=== PATIENT | female | born 1970 | race Caucasian/White ===

== ENCOUNTER 2017-07-11 13:40 | Inpatient (IN) | payer OTHER ==
[~2017-07-11] VITALS: Ht 167.6 cm; Wt 115.8 kg
--- NOTE | 2017-07-11 14:20 | ED GI/GU/ABDOMINAL COMPLAINT ---
History of Present Illness General Chief Complaint: Abdominal Pain/Flank Pain Stated Complaint: SENT BY URGENT CARE FOR ABD CT SCAN Source: patient, family Exam Limitations: no limitations Vital Signs & Intake/Output Vital Signs & Intake/Output Vital Signs Date Time Temp Pulse Resp B/P B/P Pulse O2 O2 Flow FiO2 Mean Ox Delivery Rate 07/11 1914 97.8 82 16 136/74 98 Room Air 07/11 1627 99.4 84 16 128/63 97 Room Air 07/11 1346 100.2 111 20 134/82 98 Room Air Allergies Coded Allergies: NO KNOWN ALLERGIES (10/30/12) Reconcile Medications No Known Home Medications Triage Note: SENT BY [facility]. C/O L SIDED ABDOMINAL PAIN X 2 DAYS, WITH DIARRHEA, DENIES NAUSEA OR VOMITING. Triage Nurses Notes Reviewed? yes ? Y Is pt currently ? No HPI: 46 yo previously healthy F presenting with abdominal pain. Intermittent abdominal pain for the last 3-4 days, sharp quality, left upper abdomen, waxing and waning severity, severe intensity, worse after eating, much worse since eating breakfast. Associated nausea without emesis, intermittent nonbloody loose bowel movements. Denies associated fevers, chills, chest pain, shortness of breath, palpitations, urinary symptoms, headache, neck pain, or focal neurologic symptoms. Patient never had some pain in the past. Patient has intermittent alcohol use, drinking heavily for 1 week while on vacation in [place], returned early last week, Friday had several mixed whiskey drinks, Friday drank heavily for [place] [place] Day throughout the day (multiple shots, wiskey/cokes, zeenat car bombs). (Babatunde STEVENSON,Greg) Past History Travel History Traveled to [facility] past 21 day No Medical History Any Pertinent Medical History? see below for history Neurological: NONE Cardiovascular: NONE Respiratory: NONE Gastrointestinal: NONE Hepatic: NONE Renal: NONE Musculoskeletal: NONE Psychiatric: NONE Endocrine: NONE Surgical History Surgical History: none Psychosocial History What is your primary language Thai Tobacco Use: Current Daily Use Daily Tobacco Use Amount/Type: => 5 Cigarettes daily ETOH Use: occasional use Family History Hx Contributory? No (Greg Fine MD) Review of Systems Review of Systems Constitutional: Reports: no symptoms. EENTM: Reports: no symptoms. Respiratory: Reports: no symptoms. Cardiovascular: Reports: no symptoms. GI: Reports: see HPI. Genitourinary: Reports: no symptoms. Musculoskeletal: Reports: no symptoms. Skin: Reports: no symptoms. Neurological/Psychological: Reports: no symptoms. Hematologic/Endocrine: Reports: no symptoms. Immunologic/Allergic: Reports: no symptoms. All Other Systems: Reviewed and Negative (Babatunde STEVENSON,Greg) Physical Exam Physical Exam General Appearance: well developed/nourished, no apparent distress, alert, awake Head: atraumatic, normal appearance Eyes: Bilateral: PERRL, EOMI. Ears, Nose, Throat, Mouth: hearing grossly normal, moist mucous membrane Neck: normal inspection, full range of motion Respiratory: normal breath sounds, no respiratory distress, lungs clear Cardiovascular: regular rate/rhythm, normal peripheral pulses Gastrointestinal: normal bowel sounds, non-tender, tenderness Comments: Abdomen: Moderate epigastric/left upper quadrant/left flank tenderness without rebound or guarding Core Measures ACS in differential dx? No Sepsis Present: No Sepsis Focused Exam Completed? No (Babatunde STEVENSON,Greg) Progress Differential Diagnosis: AAA, AMI, appendicitis, biliary colic, bowel obstruction , colon cancer, cholecystitis, diverticulitis, ectopic , endometritis, esophageal varices, gastritis, hepatitis, hernia, hemorrhoids, ischemic bowel, inflamm bowel dis, intrauterine , kidney stone, Veronica-Juanita tear, ovarian cyst, ovarian torsion, pancreatitis, PID/cervicitis, peptic ulcer, PUD/ GERD, perforated viscous, SBO, threatened AB, UTI/pyelo Plan of Care: Orders Procedure Date/time Status Nothing by Mouth 07/12 B Active Misc Message 07/11 1905 Active ED Holding Orders 07/11 1905 Active Code Status 07/11 1905 Active Admit to inpatient 07/12 1903 Active URINALYSIS 07/11 141 Complete LIPASE 07/11 1417 Complete LACTIC ACID 07/11 141 Complete COMPREHENSIVE METABOLIC PANEL 07/11 141 Complete CBC WITHOUT DIFFERENTIAL 07/11 141 Complete Current Medications Sig/Melissa Start time Last Medication Dose Stop Time Status Admin Sodium Chloride 1,000 ML BOLUS ONE 07/11 1914 AC 07/11 (Normal Saline 0.9%) 07/11 Laboratory Tests 07/11/17 1600: Urine Color YEL, Urine Clarity CLEAR, Urine pH 6.0, Ur Specific Galax 1.010, Urine Protein NEG, Urine Ketones NEG, Urine Nitrite NEG, Urine Bilirubin NEG, Urine Urobilinogen 0.2, Ur Leukocyte Esterase NEG, Ur Microscopic SEDIMENT EXAMINED, Urine RBC RARE, Urine WBC RARE, Ur Epithelial Cells FEW, Urine Bacteria FEW H, Urine Mucus RARE, Urine Hemoglobin TRACE-INTACT, Urine Glucose NEG 07/11/17 1438: Anion Gap 13, Estimated GFR > 60, BUN/Creatinine Ratio 16.7, Glucose 82, Lactic Acid 0.9, Calcium 9.6, Total Bilirubin 1.1, AST 13 L, ALT 26, Alkaline Phosphatase 69, Total Protein 6.7, Albumin 3.8, Globulin 2.9, Albumin/Globulin Ratio 1.3, Lipase 455 H, CBC w Diff NO MAN DIFF REQ, RBC 4.91, MCV 90.4, MCH 31.1 H, MCHC 34.4, RDW 12.9, MPV 7.2 L, Gran % 80.2 H, Lymphocytes % 12.2 L, Monocytes % 6.4, Eosinophils % 0.7, Basophils % 0.5, Absolute Granulocytes 10.0 H, Absolute Lymphocytes 1.5, Absolute Monocytes 0.8 H, Absolute Eosinophils 0.1 , Absolute Basophils 0.1 Physician MDM: 46 yo previously healthy F presenting with abdominal pain. Tachycardic in the 110s, otherwise vital signs stable, abdominal exam as above. DDx: Pancreatitis, colitis, biliary pathology, early appendicitis, diverticulitis, low concern for ACS. CBC with mild leukocytosis of 12.5. CMP unremarkable. Lipase 455. Morphine given 2 with resolution of abdominal pain. CT A/P with "Acute pancreatitis. Currently no complications." Plan to keep patient NPO, second liter normal saline ordered. Right upper quadrant ultrasound ordered to assess for biliary pathology. Patient is unable to tolerate by mouth without significant pain, unable to tolerate by mouth secondary to nausea, as necrotizing unclear origins, will require admission to the hospital for ongoing IV antibiotics and IV pain medications. Initial ED EKG: none (Babatunde STEVENSON,Greg) Departure Departure Disposition: STILL A PATIENT Condition: Stable Clinical Impression Primary Impression: Pancreatitis Referrals: Nieves Grijalva MD (PCP/Family) Departure Forms: Customer Survey General Discharge Information Prescriptions: Current Visit Scripts No Known Home Medications Admission Note Spoke With: Lana Hernandez MD Documentation of Exam: Documentation of any treatments & extenuating circumstances including Concerns Regarding Discharge (functional status, medication knowledge or non-compliance, living conditions, etc.) that warrant an admission rather than observation: [ Patient presents with several days of progressive and severe abdominal pain, associated nausea with difficulty tolerating by mouth, was found to have pancreatitis without competitions at this time, patient requires admission to the hospital for maintenance of nothing by mouth, ongoing IV fluid resuscitation , ongoing pain control with IV analgesics, she will likely require more than 48 hours of treatment in order to allow her pancreatic inflammation to subside prior to discharge, if the patient was discharged she has a high likelihood of dehydration given the inability to tolerate food by mouth, progressive pancreatic inflammation with possible abscess formation, progressive infection, leading to severe sepsis and possibly .] (Babatunde STEVENSON,Greg) Resident Co-Sign Statement Statement: ED Attending supervision documentation- x I saw and evaluated the patient. I have also reviewed all the pertinent lab results and diagnostic results. I agree with the findings and the plan of care as documented in the Resident's documentation. [] I have reviewed the ED Record and agree with the Resident's documentation. [] Additions or exceptions (if any) to the Resident's note and plan are summarized below: [] (Marin STEVENSON,Ck)
[2017-07-11 14:47] LABS: ABSOLUTE BASOPHIL COUNT 0.1 /CUMM (0.0-0.2); ABSOLUTE EOSINOPHIL COUNT 0.1 /CUMM (0.0-0.7); ABSOLUTE LYMPH COUNT 1.5 /CUMM (1.2-3.4); ABSOLUTE MONOCYTE COUNT 0.8 /CUMM (0.10-0.60); BASOPHIL % 0.5 % (0.0-2.0); EOSINOPHIL % 0.7 % (0-5); GRANULOCYTE % 80.2 % (42.2-75.2); HEMATOCRIT 44.4 % (37-47); MEAN CORPUSCULAR HGB 31.1 PG (27.0-31.0); MEAN CORPUSCULAR HGB CONC 34.4 G/DL (33.0-37.0); MEAN CORPUSCULAR VOLUME 90.4 FL (81.0-99.0); MEAN PLATELET VOLUME 7.2 FL (7.4-10.4); PLATELET COUNT 286 /CUMM (130-400); RBC DISTRIBUTION WIDTH 12.9 % (11.5-14.5); RED BLOOD CELL CT 4.91 /CUMM (4.20-5.40); WHITE BLOOD CELL COUNT 12.5 /CUMM (4.8-10.8)
--- NOTE | 2017-07-11 18:41 | CT SCAN REPORT ---
EXAMINATION: CT ABDOMEN AND PELVIS WITH CONTRAST CLINICAL INFORMATION: 46-year-old female with left-sided abdominal pain. Presumptive diagnosis: Diverticulitis. COMPARISON: None TECHNIQUE: Multidetector volumetric imaging was performed of the abdomen and pelvis following IV administration of 95 mL of Optiray 320 intravenous contrast. Sagittal and coronal reformatted images were obtained on the technologist's workstation. DLP: 1158 mGy-cm FINDINGS: AUDIOLOGY TECHNICIAN: Normal. LUNG BASES: The visualized lung bases are unremarkable. LIVER, GALLBLADDER, AND BILIARY TREE: Normal. PANCREAS: The homogeneously enhancing pancreas is normal in size and attenuation. However, there is early peripancreatic fat stranding particularly involving the body and head of the pancreas. Also, mild inflammatory reaction extends down the transverse mesocolon adjacent to the hepatic flexure of the colon. Mild fat stranding also extends into the mesenteric root. In fact, a small pancreatic effusion tracks down to the right lower quadrant. Series 602, image 54. Series 2, image 51. Anterior pararenal spaces are clear. There is no ascites. No pseudocyst formation is seen. SPLEEN: Unremarkable. A 1.3 cm accessory spleen lies adjacent to the tip of the spleen. ADRENAL GLANDS: Unremarkable. KIDNEYS AND URETERS: The kidneys are normal in size, shape, and attenuation. No hydronephrosis, hydroureter, or calculi seen. No perinephric stranding. A tiny cortical cyst is seen in the upper pole of the right kidney. BLADDER: Empty. GASTROINTESTINAL TRACT: The small and large bowel are unremarkable. The appendix is unremarkable. ABDOMINAL WALL: There is partial visualization of a fatty tumor extending to the left labial fold measuring 3.6 x 4.6 cm. This most likely represents a lipoma. LYMPH NODES: Normal. VASCULAR: Unremarkable. PELVIC VISCERA: The anteverted uterus is normal in size and shape. The ovaries are normal. There is an involuting 2 cm corpus luteum cyst within the right ovary. OSSEOUS STRUCTURES: Small enthesophytes arise from the ischial tuberosities bilaterally. IMPRESSION: 1. Acute pancreatitis. Currently no complications. 2. Probable lipoma extending to the left labial fold.
--- NOTE | 2017-07-11 19:36 | History & Physical ---
Bill STEVENSON,[facility] 07/11/171934: General Information and HPI MD Statement: I have seen and personally examined CASSIUS GEE and documented this H&P. The patient is a 46 year old F who presented with a patient stated chief complaint of [abdominal pain]. Source of Information: patient Exam Limitations: no limitations History of Present Illness: 46 yo F with no significant PMH presented to the ED for evaluation of abdominal pain. According to the patient she started experiencing severe pain in her abdomen on Friday. She wasn't able to go to the bathroom and thought she was bloated. Her got her some laxative which she took but did not improve her pain but instead she starting having diarrhea. She describes her pain as sharp, located in her epigastric area, 10/10 in severity, associated with nausea but no vomiting, worse with laying on back and improved with lying on right side. She waited for the pain to go away until Thrus evening when she finally decided to go to the doctor the next day. Today she went to an urgent care clinic but was told to go to the ER for imaging (due to some insurance issues). She has been a smoker for almost 34 years, 1 PPD. She normally drinks alcohol on Fridays/Friday. On Friday she had several mixed whiskey drinks, Friday she drank heavily for [place] [place] Day from afternoon to 3am at night. Currently reports her pain to be a 3/10 Allergies/Medications Allergies: Coded Allergies: NO KNOWN ALLERGIES (10/30/12) Home Med list No Known Home Medications Past History Travel History Traveled to [place] past 21 day No Medical History Neurological: NONE Cardiovascular: NONE Respiratory: NONE Gastrointestinal: NONE Hepatic: NONE Renal: NONE Musculoskeletal: NONE Psychiatric: NONE Endocrine: NONE Surgical History Surgical History: none Past Family/Social History Psychosocial History ETOH Use: occasional use Review of Systems Review of Systems Constitutional: Denies: chills, fever. EENTM: Reports: no symptoms. Cardiovascular: Denies: chest pain, palpitations. Respiratory: Denies: short of breath. GI: Reports: abdominal pain, diarrhea, nausea. Denies: bloody stool. Genitourinary: Reports: no symptoms. Musculoskeletal: Reports: no symptoms. Skin: Reports: no symptoms. Neurological/Psychological: Reports: no symptoms. Exam & Diagnostic Data Last 24 Hrs of Vital Signs/I&O Vital Signs Date Time Temp Pulse Resp B/P B/P Pulse O2 O2 Flow FiO2 Mean Ox Delivery Rate 07/11 1914 97.8 82 16 136/74 98 Room Air 07/11 1627 99.4 84 16 128/63 97 Room Air 07/11 1346 100.2 111 20 134/82 98 Room Air Intake & Output 07/11 1600 07/11 0800 07/11 0000 Intake Total 1000 Output Total Balance 1000 Intake, IV 1000 Patient 225 lb Weight Weight Reported by Patient Measurement Method Physical Exam General Appearance Alert, Oriented X3, Cooperative, Mild Distress Skin No Rashes, No Breakdown Skin Temp/Moisture Exam: Warm/Dry Sepsis Skin Exam (color): Normal for Ethnicity HEENT Atraumatic Cardiovascular Normal S1, Normal S2, No Murmurs Lungs Clear to Auscultation, Normal Air Movement Abdomen Soft, epigastric tenderness Neurological Normal Speech Extremities No Edema Assessment/Plan Assessment: 46 yo F with no significant PMH presented to the ED for evaluation of abdominal pain. Assessment: 1. Acute Pancreatitis - likely alcohol induced 2. SIRS - elevated white count, tachycardia Plan: * Admit to general medicine floor * Imaging findings suggestive of acute pancreatitis likely in the setting of alcohol use. * NPO * IV Zofran for nausea. * follow up blood and urine cultures * follow up Utox * Hydrate with Lactated Ringer's @200ml/hr * Pain control with IV Morphine 4mg q4prn and PO oxycodone 5mg q6prn. * nicotine patch 21 mg daily * serum alcohol level <10.0 * Diet: NPO for now. Will advance diet as tolerated. * GI prophylaxis: IV protonix * DVT Prophylaxis: SC Lovenox * Code: Full Code As Ranked By This Provider Problem List: 1. Pancreatitis Core Measures/Misc (01/05) Acute Coronary Syndrome ACS Diagnosis: No Congestive Heart Failure Congestive Heart Failure Diagnosis No Cerebrovascular Accident CVA/TIA Diagnosis: No VTE (View Protocol) VTE Risk Factors Age>40 No Mechanical VTE Prophylaxis d/t N/A MechProphylax Ordered No VTE Pharm Prophylaxis d/t NA PharmProphylax ordered Sepsis (View protocol) Sepsis Present: No Claude Jacobs MD 07/11/172044: Resident Review Statement Resident Statement: examined this patient, discussed with international relations professor, agreed with international relations professor Other Findings: The patient is a 46 year old woman with no significant past medical history who presented with a 3 day history of sudden abdominal pain, anorexia, and nausea. Her abdominal pain was 10/10 intensity and non-radiating and associated with bloating. On account of her bloating and constipation, she took some dulcolax and gasX on Friday and experienced non bloody diarrhea X 6 episodes into . Her abdominal pain continued to worsen until she presented today to an urgent care clinic and was sent to the ER to do a CT scan. Of note, she recently drank 5 shots, 3 beers and some other drinks 5 days ago over the . She also spent one week in [place] Jun 18 to June 24 where she drank frequently. She states that she drinks mainly over the weekend 5-6 shots. She admits to smoking one pack per day since she was 14 but denies illicit substance use. She takes no other medications apart from a multivitamin tablets. She has had no previous episodes of similar abdominal pain in the past. Vital signs on presentation 100.2F, Pulse 111 bpm, RR 20, BP 134/82, PO2 98% on room air. Physical exam General Appearance: well developed/nourished, no apparent distress, alert, awake , no jaundice HEENT: atraumatic, normal appearance, PERRL, EOMI, moist mucus membranes Chest: normal breath sounds, no respiratory distress, lungs clear Cardiovascular: regular rate/rhythm, normal S1, S2, no murmurs Abdomen: Tenderness in epigastric and periumbilical region, normal bowel sounds Extremities: No pedal edema Significant lab: CBC shows WBC 12.5, hemoglobin 15.3, reticulocyte count of 286. Chemistries show sodium 141, potassium 3.9, creatinine 0.9. Lipase elevated at 455. Triglycerides normal at 133, LDL cholesterol 109. Urinalysis unremarkable. Serum alcohol pending. Imaging shows CT abdomen and pelvis showing early lilo-pancreatic fat stranding consistent with pancreatitis. Abdominal ultrasound showed no evidence of biliary tract disease. In the ER patient received 2 L of IV normal saline and IV morphine 4 mg 2 with resultant improvement in her pain from 10/10 at presentation to 3/10 at a time of our evaluation. Problem list 1. Acute pancreatitisprobably alcohol related 2. Smoker Plan * Admit to general medicine * EKG shows normal sinus rhythm with no ST segment changes * IV Ringer's lactate at 1 50 mL an hour * IV morphine 4 mg every 4 hours when necessary for severe pain, by mouth oxycodone 5 being the every 6 hours when necessary for moderate pain on by mouth Tylenol for mild pain * IV Zofran 4 mg Q 6 hrs prn for nausea or vomitting * Maintain nothing by mouth * Patient has been counseled to stop or reduce alcohol intake as this may result in another flare of pancreatitis * Monitor blood pressure and vital signs closely * Fasting lipid panel in the morning and repeat BEP to monitor for electrolyte changes * Start nicotine patch 21 mg daily for smoking cessation * DVT prophylaxis with subcutaneous Lovenox 40 mg daily * Patient is full code Dvaid STEVENSON, [facility] 07/11/172: Attending MD Review Statement Attending Statement Attending MD Statement: examined this patient, discuss w/resident/PA/RESTAURANT SHIFT SUPERVISOR, agreed w/resident/PA/RESTAURANT SHIFT SUPERVISOR, reviewed images, amended to note Attending Assessment/Plan: 46 yo F with no medical problems, current everyday smoker and alcohol use over weekends, is here with 3-day h/o epigastric and mid abdominal sharp pain, associated with nausea, chills and sweats. She felt bloated initially and took laxative and gasex. This resulted in few episodes of diarrhea but this seems to be resolving now. Patient drinks over the weekends, but she drank more than usual over the past weekend on the sabiha of ' and she also was on vacation to [place] (returned June 24) where she consumed a lot of alcohol. She has no prior h/o pancreatitis or gallstones. No h/o hypertriglyceridemia. She has never been through a detox. She reports being told about having an ?arrhythmia when she was seen at [facility] in 2013 after syncopal event (possibly vasovagal). Vitals: Tmax 100.2, HR 80-100's, BP 129/70, sats 98% RA. Exam: AAO, in mild distress, rates pain at 3/10, dry mucous membranes, Chest clear, Heart S1S2 regular, Abd soft, epigastric and periumbilical tenderness, LE: trace edema. Labs: WBC 12.5, LFTs normal, BUN 15, Hct 44.4, Triglyceride 133. Lipase 455. UA clear. CT abd/pelvis: acute pancreatitis, probable lipoma. RUQ ultrasound: no biliary tract disease, no gallstones. Assessment and plan: 1. Acute alcohol induced pancreatitis 2. Alcohol use, not dependence 3. SIRS in the setting of pancreatitis 4. Smoker - Admit to general medicine - Blood culture x2, urine culture - She meets two criteria of the three epigastric pain and CT s/o pancreatitis, although lipase is not impressive. - NPO - Anti-emetics PRN, IV pantoprazole - Lactated ringers @ 200-250/hr - IV morphine as needed for pain - Advance diet as tolerated - Check baseline EKG and CXR - Check urine tox screen and alcohol level - Smoking and alcohol cessation counseling, nicotine patch DVT ppx Lovenox. Full code.
--- NOTE | 2017-07-11 19:58 | ULTRASOUND REPORT ---
EXAMINATION: US ABDOMEN LIMITED CLINICAL INFORMATION: 46-year-old female patient with pancreatitis. COMPARISON: CT of the abdomen and pelvis done earlier today. TECHNIQUE: Real-time imaging of the right upper quadrant abdominal viscera. FINDINGS: PANCREAS: The pancreas is better evaluated on the recent CT exam. LIVER: Normal. The liver demonstrates normal size, contour and slight increase in overall echogenicity. (Fatty infiltration). No focal lesion or intrahepatic biliary duct dilatation. GALLBLADDER: Normal. The gallbladder is physiologically distended without evidence of stones, sludge, polyps, wall thickening or pericholecystic fluid. COMMON BILE DUCT: Normal in caliber measuring 0.4 cm in diameter. RIGHT KIDNEY: Normal. No hydronephrosis. No renal calculi or focal parenchymal lesions. The kidney measures 9.2 cm in maximum dimension. FREE FLUID: None. IMPRESSION: No evidence of biliary tract disease.
--- NOTE | 2017-07-11 21:38 | Admission Certification ---
Admission Certification Certification Statement - As attending physician, I certify that at the time of - admission, based on clinical presentation, severity of - symptoms, need for further diagnostic testing and - therapeutic interventions, and risk of adverse outcomes - without in-hospital treatment, in my clinical assessment, - this patient requires an acute hospital stay for a minimum - of two nights or longer. I have also considered psychsocial - factors such as support system, advanced age, financial - issues, cognitive issues, and failed out-patient treatments, - past re-admission history, safety of patient, and lack of - compliance as applicable. Specific rationale supporting this admission is: Acute alcohol induced pancreatitis.
[2017-07-11 22:28] VITALS: BP 124/70
--- NOTE | 2017-07-11 23:36 | RADIOLOGY REPORT ---
EXAMINATION: XR PORTABLE CHEST CLINICAL INFORMATION: Fever COMPARISON: None TECHNIQUE: Portable frontal view of the chest was obtained. FINDINGS: No acute finding in this portable study. Some limitation from body habitus. No infiltrate. No effusion is seen. Mild elevation right hemidiaphragm. IMPRESSION: No acute infiltrate seen
[2017-07-12 06:20] VITALS: BP 140/88
--- NOTE | 2017-07-12 08:13 | PN- Housestaff ---
Arlene STEVENSON,[facility] 07/12/17 0812: Subjective Follow-up For: 1. Acute pancreatitis Complaints: pain scale (0-10) (abdomen 3/10) Subjective: The patient and an uneventful night. She still has grade 3/10 intensity abdominal pain but is improved compared to previous. She denies nausea or vomiting and she states that she feels hungry. She denies diarrhea. She denies fever, chills, shortness of breath or cough. She denies palpitations, chest pain or leg swelling. Review of Systems Constitutional: Denies: chills, fever, weakness. Objective Last 24 Hrs of Vital Signs/I&O Vital Signs Date Time Temp Pulse Resp B/P B/P Pulse O2 O2 Flow FiO2 Mean Ox Delivery Rate 07/12 0620 98.7 83 18 140/88 95 Room Air 07/11 2228 99.1 84 18 124/70 96 Room Air 07/11 2142 98.1 80 18 129/70 98 Room Air 07/11 1914 97.8 82 16 136/74 98 Room Air 07/11 1627 99.4 84 16 128/63 97 Room Air 07/11 1346 100.2 111 20 134/82 98 Room Air Intake & Output 07/12 1600 07/12 0800 07/12 0000 Intake Total 1600 1000 Output Total Balance 1600 1000 Intake, IV 1600 1000 Patient 253 lb 225 lb Weight Weight Bed scale Reported by Patient Measurement Method Physical Exam General Appearance: Alert, Oriented X3, Cooperative, No Acute Distress Skin: No Breakdown Skin Temp/Moisture Exam: Warm/Dry Sepsis Skin Exam (color): Normal for Ethnicity HEENT: Atraumatic, PERRLA, EOMI, Mucous Membr. moist/pink Neck: Supple, No JVD, No thryomegaly Lymphatic: Cervical nl Cardiovascular: Regular Rate, Normal S1, Normal S2, No Murmurs Lungs: Clear to Auscultation, Normal Air Movement Abdomen: No Hepatospenomegaly, No Masses, tenderness in periumbilical and epigastric region Neurological: Normal Speech, Strength at 5/5 X4 Ext, Normal Tone Current Medications: Current Medications Sig/Melissa Start time Last Medication Dose Route Stop Time Status Admin Acetaminophen 650 MG Q6 PRN 07/11 2045 AC PO Enoxaparin Sodium 40 MG DAILY 07/12 1000 AC SC Lactated Ringer's 1,000 ML Q6H 07/11 2300 AC 07/12 IV 0322 Morphine Sulfate 4 MG Q4P PRN 07/11 2045 AC 07/12 IV 0019 Morphine Sulfate 4 MG ONCE ONE 07/11 1530 DC 07/11 IV 07/11 1531 1522 Morphine Sulfate 0 .STK-MED ONE 07/11 1524 DC .ROUTE Morphine Sulfate 0 .STK-MED ONE 07/11 1440 DC .ROUTE Morphine Sulfate 4 MG ONCE ONE 07/11 1430 DC 07/11 IV 07/11 1431 1440 Nicotine 0 .STK-MED ONE 07/11 2215 DC TOP Nicotine 21 MG DAILY 07/11 2200 AC 07/11 TOP 2211 Ondansetron HCl 4 MG Q6P PRN 07/11 221 AC IV Oxycodone HCl 5 MG Q6P PRN 07/11 204 AC PO Pantoprazole Sodium 40 MG DAILY 07/12 1000 AC IV Sodium Chloride 1,000 ML BOLUS ONE 07/11 1915 DC 07/11 IV 07/11 2114 1919 Sodium Chloride 1,000 ML BOLUS ONE 07/11 1600 DC 07/11 IV 07/11 1759 1606 Sodium Chloride 1,000 ML BOLUS ONE 07/11 1415 DC 07/11 IV 07/11 1614 1440 Last 24 Hrs of Lab/Josh Results Last 24 Hrs of Labs/Mics: Laboratory Tests 07/12/17 0700: Urine Opiates Screen 2019.00 H, Methadone Screen < 40, Barbiturate Screen < 60, Ur Phencyclidine Scrn < 6.00, Amphetamines Screen < 100, U Benzodiazepines Scrn < 85, Urine Cocaine Screen < 50, Urine Cannabis Screen < 5.00 07/12/17 0645: Sodium Pending, Potassium Pending, Chloride Pending, Carbon Dioxide Pending, Anion Gap Pending, BUN Pending, Creatinine Pending, BUN/Creatinine Ratio Pending , Triglycerides Pending, Cholesterol Pending, LDL Cholesterol, Calc Pending, HDL Cholesterol Pending, Cholesterol/HDL Ratio Pending, CBC w Diff Pending, WBC Pending, RBC Pending, Hgb Pending, Hct Pending, MCV Pending, MCH Pending, MCHC Pending, RDW Pending, Plt Count Pending, MPV Pending 07/11/17 1600: Urine Color YEL, Urine Clarity CLEAR, Urine pH 6.0, Ur Specific [place] 1.010, Urine Protein NEG, Urine Ketones NEG, Urine Nitrite NEG, Urine Bilirubin NEG, Urine Urobilinogen 0.2, Ur Leukocyte Esterase NEG, Ur Microscopic SEDIMENT EXAMINED, Urine RBC RARE, Urine WBC RARE, Ur Epithelial Cells FEW, Urine Bacteria FEW H, Urine Mucus RARE, Urine Hemoglobin TRACE-INTACT, Urine Glucose NEG 07/11/17 1438: Anion Gap 13, Estimated GFR > 60, BUN/Creatinine Ratio 16.7, Glucose 82, Lactic Acid 0.9, Calcium 9.6, Total Bilirubin 1.1, AST 13 L, ALT 26, Alkaline Phosphatase 69, Total Protein 6.7, Albumin 3.8, Globulin 2.9, Albumin/Globulin Ratio 1.3, Triglycerides 133, Cholesterol 170, LDL Cholesterol, Calc 109, HDL Cholesterol 35 L, Cholesterol/HDL Ratio 5 H, Lipase 455 H, CBC w Diff NO MAN DIFF REQ, RBC 4.91, MCV 90.4, MCH 31.1 H, MCHC 34.4, RDW 12.9, MPV 7.2 L, Gran % 80.2 H, Lymphocytes % 12.2 L, Monocytes % 6.4, Eosinophils % 0.7, Basophils % 0.5, Absolute Granulocytes 10.0 H, Absolute Lymphocytes 1.5, Absolute Monocytes 0.8 H, Absolute Eosinophils 0.1, Absolute Basophils 0.1, Serum Alcohol < 10.0 Microbiology 07/12 0700 URINE ROUT: Urine Culture - RECD 07/12 0045 BLOOD: Blood Culture - RECD 07/12 0005 BLOOD: Blood Culture - RECD Assessment/Plan Assessment: The patient is a 46-year-old woman with no significant past medical history presents with a 3 day history of epigastric and periumbilical pain associated with loss of appetite, bloating, and 3 episodes of diarrhea after recent alcohol binge. She did manage for acute pancreatitis. Her lipase was elevated at 455. Her lipid panel is unremarkable with normal triglycerides. She is improving and the pain is fairly well controlled at this time. I believe she can be advanced to clear liquid diet this afternoon with a plan to discharge her over the next 24-48 hours if she continues to improve. Problem list 1. Acute pancreatitisprobably alcohol related * Advance to clear liquid diet this afternoon if patient can tolerate this * Continue IV Ringer's lactate at 200 mL an hour * Continue IV morphine 4 mg every 4 hours when necessary for severe pain, by mouth oxycodone 5 being the every 6 hours when necessary for moderate pain on by mouth Tylenol for mild pain * Continue IV Zofran 4 mg Q 6 hrs prn for nausea or vomitting * Patient has been counseled to stop or reduce alcohol intake as this may result in another flare of pancreatitis * Monitor blood pressure and vital signs closely * Follow-up Fasting lipid panel in the morning and BEP to monitor for electrolyte changes * Urinalysis is unremarkable and urine toxicology shows no drugs of abuse. 2. Smoker * Continue nicotine patch 21 mg daily for smoking cessation DVT prophylaxis with subcutaneous Lovenox 40 mg daily Patient is full code Problem List: 1. Pancreatitis Pain Ratin Pain Location: Abdomen Pain Goal: Pain 4 or less Pain Plan: As described earlier Tomorrow's Labs & Rationales: CBC and BEP for acute prostatitis Catie Brewster MD 07/12/17 1226: Attending MD Review Statement Attending Statement Attending MD Statement: examined this patient, discuss w/resident/PA/TILE INSTALLER, agreed w/resident/PA/TILE INSTALLER, reviewed EMR data (avail), discussed with nursing, discussed with case mgmt, reviewed images, amended to note Attending Assessment/Plan: Patient seen and examined, feeling overall better. Abdominal pain is improved and no more nausea. Patient wants to eat. Vital Signs Date Time Temp Pulse Resp B/P B/P Pulse O2 O2 Flow FiO2 Mean Ox Delivery Rate 07/12 0620 98.7 83 18 140/88 95 Room Air 07/11 2228 99.1 84 18 124/70 96 Room Air 07/11 2142 98.1 80 18 129/70 98 Room Air 07/11 1914 97.8 82 16 136/74 98 Room Air 07/11 1627 99.4 84 16 128/63 97 Room Air 07/11 1346 100.2 111 20 134/82 98 Room Air on exam; aox3, nad. cv; s1,s2, rrr resp; clear abd; soft, mildly tender in epigastrium, bs+ ext; no edema. Laboratory Tests 07/12 07/12 0700 0645 Chemistry Sodium (137 - 145 mmol/L) 137 Potassium (3.5 - 5.1 mmol/L) 3.7 Chloride (98 - 107 mmol/L) 105 Carbon Dioxide (22 - 30 mmol/L) 23 Anion Gap (5 - 16) 10 BUN (7 - 17 mg/dL) 9 Creatinine (0.5 - 1.0 mg/dL) 0.7 Estimated GFR (>60 ml/min) > 60 BUN/Creatinine Ratio (7 - 25 %) 12.9 Triglycerides (<150 mg/dL) 119 Cholesterol (<200 MG/DL) 137 LDL Cholesterol, Calc (65 - 129 mg/dL) 89 HDL Cholesterol (40 - 60 mg/dL) 25 L Cholesterol/HDL Ratio (0.00 - 4.23 %) 5 H Hematology CBC w Diff NO MAN DIFF REQ WBC (4.8 - 10.8 /CUMM) 10.3 RBC (4.20 - 5.40 /CUMM) 4.34 Hgb (12.0 - 16.0 G/DL) 13.6 Hct (37 - 47 %) 39.8 MCV (81.0 - 99.0 FL) 91.8 MCH (27.0 - 31.0 PG) 31.3 H MCHC (33.0 - 37.0 G/DL) 34.2 RDW (11.5 - 14.5 %) 13.0 Plt Count (130 - 400 /CUMM) 227 MPV (7.4 - 10.4 FL) 7.8 Gran % (42.2 - 75.2 %) 78.1 H Lymphocytes % (20.5 - 51.1 %) 12.9 L Monocytes % (1.7 - 9.3 %) 6.9 Eosinophils % (0 - 5 %) 1.8 Basophils % (0.0 - 2.0 %) 0.3 Absolute Granulocytes (1.4 - 6.5 /CUMM) 8.1 H Absolute Lymphocytes (1.2 - 3.4 /CUMM) 1.3 Absolute Monocytes (0.10 - 0.60 /CUMM) 0.7 H Absolute Eosinophils (0.0 - 0.7 /CUMM) 0.2 Absolute Basophils (0.0 - 0.2 /CUMM) 0 Toxicology Urine Opiates Screen (>2000 NG/ML) 2019.00 H Methadone Screen (>300 NG/ML) < 40 Barbiturate Screen (>200 NG/ML) < 60 Ur Phencyclidine Scrn (>25 NG/ML) < 6.00 Amphetamines Screen (>1000 NG/ML) < 100 U Benzodiazepines Scrn (>200 NG/ML) < 85 Urine Cocaine Screen (>300 NG/ML) < 50 Urine Cannabis Screen (>50 NG/ML) < 5.00 07/11 07/11 1600 1438 Chemistry Sodium (137 - 145 mmol/L) 141 Potassium (3.5 - 5.1 mmol/L) 3.9 Chloride (98 - 107 mmol/L) 101 Carbon Dioxide (22 - 30 mmol/L) 27 Anion Gap (5 - 16) 13 BUN (7 - 17 mg/dL) 15 Creatinine (0.5 - 1.0 mg/dL) 0.9 Estimated GFR (>60 ml/min) > 60 BUN/Creatinine Ratio (7 - 25 %) 16.7 Glucose (65 - 99 mg/dL) 82 Lactic Acid (0.7 - 2.1 mmol/L) 0.9 Calcium (8.4 - 10.2 mg/dL) 9.6 Total Bilirubin (0.2 - 1.3 mg/dL) 1.1 AST (14 - 36 U/L) 13 L ALT (9 - 52 U/L) 26 Alkaline Phosphatase (<127 U/L) 69 Total Protein (6.3 - 8.2 g/dL) 6.7 Albumin (3.5 - 5.0 g/dL) 3.8 Globulin (1.9 - 4.2 gm/dL) 2.9 Albumin/Globulin Ratio (1.1 - 2.2 %) 1.3 Triglycerides (<150 mg/dL) 133 Cholesterol (<200 MG/DL) 170 LDL Cholesterol, Calc (65 - 129 mg/dL) 109 HDL Cholesterol (40 - 60 mg/dL) 35 L Cholesterol/HDL Ratio (0.00 - 4.23 %) 5 H Lipase (23 - 300 U/L) 455 H Hematology CBC w Diff NO MAN DIFF REQ WBC (4.8 - 10.8 /CUMM) 12.5 H RBC (4.20 - 5.40 /CUMM) 4.91 Hgb (12.0 - 16.0 G/DL) 15.3 Hct (37 - 47 %) 44.4 MCV (81.0 - 99.0 FL) 90.4 MCH (27.0 - 31.0 PG) 31.1 H MCHC (33.0 - 37.0 G/DL) 34.4 RDW (11.5 - 14.5 %) 12.9 Plt Count (130 - 400 /CUMM) 286 MPV (7.4 - 10.4 FL) 7.2 L Gran % (42.2 - 75.2 %) 80.2 H Lymphocytes % (20.5 - 51.1 %) 12.2 L Monocytes % (1.7 - 9.3 %) 6.4 Eosinophils % (0 - 5 %) 0.7 Basophils % (0.0 - 2.0 %) 0.5 Absolute Granulocytes (1.4 - 6.5 /CUMM) 10.0 H Absolute Lymphocytes (1.2 - 3.4 /CUMM) 1.5 Absolute Monocytes (0.10 - 0.60 /CUMM) 0.8 H Absolute Eosinophils (0.0 - 0.7 /CUMM) 0.1 Absolute Basophils (0.0 - 0.2 /CUMM) 0.1 Toxicology Serum Alcohol (<10 MG/DL) < 10.0 Urines Urine Color (YEL,AMB,STR) YEL Urine Clarity (CLEAR) CLEAR Urine pH (5.0 - 8.0) 6.0 Ur Specific [place] (1.001 - 1.035) 1.010 Urine Protein (NEG,<30 MG/DL) NEG Urine Ketones (NEG) NEG Urine Nitrite (NEG) NEG Urine Bilirubin (NEG) NEG Urine Urobilinogen (0.1 - 1.0 EU/dl) 0.2 Ur Leukocyte Esterase (NEG) NEG Ur Microscopic SEDIMENT EXAMINED Urine RBC (0 - 5 /HPF) RARE Urine WBC (0 - 2 /HPF) RARE Ur Epithelial Cells (NONE,FEW) FEW Urine Bacteria (NEG/NONE) FEW H Urine Mucus (FEW,NONE) RARE Urine Hemoglobin (NEG) TRACE-INTACT Urine Glucose (N MG/DL) NEG A/P: 46-year-old female with no significant past history admitted with abdominal pain secondary to acute pancreatitis. Patient gradually improving. With start on clear liquid diet and advanced to full liquids tonight if tolerates diet. Decrease the rate of fluid 225 per hour and if patient tolerates full liquids diet and tomorrow will cut back further. Continue symptomatic management with analgesics and antiemetics. DVT prophylaxis: Lovenox.
[2017-07-12 08:58] LABS: ABSOLUTE BASOPHIL COUNT 0 /CUMM (0.0-0.2); ABSOLUTE EOSINOPHIL COUNT 0.2 /CUMM (0.0-0.7); ABSOLUTE GRANULOCYTE CT 8.1 /CUMM (1.4-6.5); ABSOLUTE LYMPH COUNT 1.3 /CUMM (1.2-3.4); ABSOLUTE MONOCYTE COUNT 0.7 /CUMM (0.10-0.60); BASOPHIL % 0.3 % (0.0-2.0); EOSINOPHIL % 1.8 % (0-5); GRANULOCYTE % 78.1 % (42.2-75.2); HEMATOCRIT 39.8 % (37-47); MEAN CORPUSCULAR HGB 31.3 PG (27.0-31.0); MEAN CORPUSCULAR HGB CONC 34.2 G/DL (33.0-37.0); MEAN CORPUSCULAR VOLUME 91.8 FL (81.0-99.0); MEAN PLATELET VOLUME 7.8 FL (7.4-10.4); PLATELET COUNT 227 /CUMM (130-400); RED BLOOD CELL CT 4.34 /CUMM (4.20-5.40); WHITE BLOOD CELL COUNT 10.3 /CUMM (4.8-10.8)
[2017-07-12 14:50] VITALS: BP 135/80
[2017-07-12 22:34] VITALS: BP 120/60
--- NOTE | 2017-07-12 22:54 | Patient Discharge Instructions ---
Discharge Instructions General Discharge Information You were seen/treated for: Acute Pancreatitis Special Instructions: Please follow up with your PCP within one week of discharge. Diet Continue normal diet: Yes Activity Full Activity/No Limits: Yes Acute Coronary Syndrome Inclusion Criteria At DC or during hospital stay patient has or had the following: ACS DIAGNOSIS No Discharge Core Measures Meds if any: Prescribed or Continued at Discharge Meds if any: NOT Prescribed or Continued at Discharge Congestive Heart Failure Inclusion Criteria At DC or during hospital stay patient has or had the following: CHF DIAGNOSIS No Discharge Core Measures Meds if any: Prescribed or Continued at Discharge Meds if any: NOT Prescribed or Continued at Discharge Cerebrovascular accident Inclusion Criteria At DC or during hospital stay patient has or had the following: CVA/TIA Diagnosis No Discharge Core Measures Meds if any: Prescribed or Continued at Discharge Meds if any: NOT Prescribed or Continued at Discharge Venous thromboembolism Inclusion Criteria VTE Diagnosis No VTE Type NONE VTE Confirmed by (Test) NONE Discharge Core Measures - Per Current guidelines, there needs to be overlap - treatment for the first 5 days of Warfarin therapy. - If discharged on Warfarin prior to 5 days of - overlap therapy, the patient will need to be - assessed for post discharge needs including - *Post discharge parental anticoagulation - *Warfarin and/or parental anticoagulation education - *Follow up date to check INR post discharge At least 5 days overlap therapy as Inpatient No Meds if any: Prescribed or Continued at Discharge Note: Overlap Therapy is Warfarin and Anticoagulant Meds if any: NOT Prescribed or Continued at Discharge
[2017-07-13 06:20] VITALS: BP 116/70
[2017-07-13 08:14] LABS: ABSOLUTE BASOPHIL COUNT 0 /CUMM (0.0-0.2); ABSOLUTE EOSINOPHIL COUNT 0.2 /CUMM (0.0-0.7); ABSOLUTE GRANULOCYTE CT 6.4 /CUMM (1.4-6.5); ABSOLUTE LYMPH COUNT 1.5 /CUMM (1.2-3.4); ABSOLUTE MONOCYTE COUNT 0.5 /CUMM (0.10-0.60); BASOPHIL % 0.2 % (0.0-2.0); GRANULOCYTE % 74.8 % (42.2-75.2); MEAN CORPUSCULAR HGB CONC 33.9 G/DL (33.0-37.0); MEAN CORPUSCULAR VOLUME 91.6 FL (81.0-99.0); MEAN PLATELET VOLUME 7.7 FL (7.4-10.4); PLATELET COUNT 253 /CUMM (130-400); RBC DISTRIBUTION WIDTH 12.7 % (11.5-14.5); RED BLOOD CELL CT 4.48 /CUMM (4.20-5.40); WHITE BLOOD CELL COUNT 8.5 /CUMM (4.8-10.8)
--- NOTE | 2017-07-13 08:29 | PN- Housestaff ---
Subjective Follow-up For: Acute pancreatitis Complaints: no complaints Subjective: Patient seen and examined at bedside. No overnight events. Patient denies abdominal pain, nausea, vomiting, diarrhea, chest pain. Review of Systems Constitutional: Reports: see HPI. Objective Last 24 Hrs of Vital Signs/I&O Vital Signs Date Time Temp Pulse Resp B/P B/P Pulse O2 O2 Flow FiO2 Mean Ox Delivery Rate 07/13 06 99.0 85 20 116/70 97 Room Air 07/12 2234 100.0 88 20 120/60 96 Room Air Intake & Output 07/13 1600 07/13 0800 07/13 0000 Intake Total 1100 700 Output Total Balance 1100 700 Intake, IV 1000 500 Intake, Oral 100 200 Patient 255 lb Weight Weight Bed scale Measurement Method Physical Exam General Appearance: Alert, Oriented X3, Cooperative, No Acute Distress Cardiovascular: Regular Rate, Normal S1, Normal S2, No Murmurs Lungs: Clear to Auscultation Abdomen: Soft, No Tenderness, No Hepatospenomegaly Neurological: Strength at 5/5 X4 Ext, Normal Tone, Sensation Intact Current Medications: Current Medications Sig/Melissa Start time Last Medication Dose Route Stop Time Status Admin Acetaminophen 650 MG Q6 PRN 07/11 2044 DCD PO Enoxaparin Sodium 40 MG DAILY 07/12 1000 DCD 07/13 SC 0955 Lactated Ringer's 1,000 ML Q6H 07/11 2300 DC 07/13 IV 0150 Morphine Sulfate 4 MG Q4P PRN 07/11 2044 DCD 07/12 IV 0019 Nicotine 21 MG DAILY 07/11 2199 DCD 07/13 TOP 0956 Omeprazole 20 MG DAILY AC 07/13 0843 DCD 07/13 PO 0955 Ondansetron HCl 4 MG Q6P PRN 07/11 2214 DCD IV Oxycodone HCl 5 MG Q6P PRN 07/11 2044 DCD PO Pantoprazole Sodium 40 MG DAILY 07/12 1000 DC 07/12 IV 1019 Last 24 Hrs of Lab/Josh Results Last 24 Hrs of Labs/Mics: Laboratory Tests 07/13/17 0736: Anion Gap 11, Estimated GFR > 60, BUN/Creatinine Ratio 8.6, CBC w Diff NO MAN DIFF REQ, RBC 4.48, MCV 91.6, MCH 31.0, MCHC 33.9, RDW 12.7, MPV 7.7, Gran % 74.8, Lymphocytes % 17.6 L, Monocytes % 5.4, Eosinophils % 2.0, Basophils % 0.2 , Absolute Granulocytes 6.4, Absolute Lymphocytes 1.5, Absolute Monocytes 0.5, Absolute Eosinophils 0.2, Absolute Basophils 0 Assessment/Plan Assessment: The patient is a 46-year-old woman with no significant past medical history presents with a 3 day history of epigastric and periumbilical pain associated with loss of appetite, bloating, and 3 episodes of diarrhea after recent alcohol binge. She did manage for acute pancreatitis. Her lipase was elevated at 455. Her lipid panel is unremarkable with normal triglycerides. She is improving and the pain is fairly well controlled at this time. I believe she can be advanced to clear liquid diet this afternoon with a plan to discharge her over the next 24-48 hours if she continues to improve. Problem list 1. Acute pancreatitisprobably alcohol related * Diet advanced to regular diet. We'll discontinue IV fluids. Patient able to take by mouth. * Continue IV morphine 4 mg every 4 hours when necessary for severe pain, by mouth oxycodone 5 being the every 6 hours when necessary for moderate pain on by mouth Tylenol for mild pain * Continue IV Zofran 4 mg Q 6 hrs prn for nausea or vomitting * Patient has been counseled to stop or reduce alcohol intake as this may result in another flare of pancreatitis * Monitor blood pressure and vital signs closely * Follow-up Fasting lipid panel in the morning and BEP to monitor for electrolyte changes * Urinalysis is unremarkable and urine toxicology shows no drugs of abuse. 2. Smoker * Continue nicotine patch 21 mg daily for smoking cessation DVT prophylaxis with subcutaneous Lovenox 40 mg daily Patient is full code Problem List: 1. Pancreatitis Pain Ratin Pain Location: NONE Pain Goal: Remain pain free Pain Plan: TYLENOL Tomorrow's Labs & Rationales: CBC,BEP
[2017-07-13] MEDS ORDERED: NICOTINE PATCH1 EAC3 TOP ×2 (11:42→13:59)
--- NOTE | 2017-07-13 12:27 | PN- Att Addend ---
Attending Addendum Attending Brief Note Patient seen and examined, overall doing much better. Her diet had been advanced to regular diet today. Patient should be on a low-fat diet going forward. She is otherwise doing well with no further pain or nausea vomiting. Once she tolerate her lunch for solid diet and she can be discharged home today for further follow-up with her primary care doctor. Patient was educated on stopping her alcohol intake and starting eating low-fat diet going forward.
--- NOTE | 2017-07-13 22:05 | Discharge Summary ---
Visit Information Visit Dates Admission Date: 07/11/17 Discharge Date: 07/13/17 Hospital Course Course Attending Physician: Catie Brewster MD Primary Care Physician: Valentine STEVENSON,[facility] Course: Ms Thien martell is a 46 year old woman with no significant past medical history who presented to the ED with a 3 day history of epigastric and periumbilical pain associated with loss of appetite, bloating, and 3 episodes of diarrhea after recent excess alcohol use. She was admitted and treated for: Acute Pancreatitis: Patient presented with severe abdominal pain going on for the past 4 days. Her labs on showed lipase to be elevated at 455. Her imaging findings were suggestive of acute pancreatitis without any complications. She was made NPO and hydrated with lactated Ringers solution. Pain was managed with IV morphine as needed and Zofran for nausea. She did well over the course of the night that she was admitted. She was slowly started on clear liquid diet which she tolerated well. Her diet was gradually advanced to regular. Her lipid panel was wnl. She had a short hospital course without any complications. Patient has been counseled to stop or reduce alcohol intake as this may result in another flare of pancreatitis. She was discharged in stable disposition with instructions to follow a low fat diet and follow up with her PCP within one week of discharge. DVT Prophylaxis: Maintained with SC Lovenox Allergies: Coded Allergies: NO KNOWN ALLERGIES (10/30/12) Significant Procedures: SERVICE DATE: 07/11/17-1845 EXAM TYPE: US - US-LIMITED ABDOMEN FINDINGS: PANCREAS: The pancreas is better evaluated on the recent CT exam. LIVER: Normal. The liver demonstrates normal size, contour and slight increase in overall echogenicity. (Fatty infiltration). No focal lesion or intrahepatic biliary duct dilatation. GALLBLADDER: Normal. The gallbladder is physiologically distended without evidence of stones, sludge, polyps, wall thickening or pericholecystic fluid. COMMON BILE DUCT: Normal in caliber measuring 0.4 cm in diameter. RIGHT KIDNEY: Normal. No hydronephrosis. No renal calculi or focal parenchymal lesions. The kidney measures 9.2 cm in maximum dimension. FREE FLUID: None. IMPRESSION: No evidence of biliary tract disease. SERVICE DATE: 07/11/17-141 EXAM TYPE: CAT - CT ABD & PELVIS W IV CONTRAST FINDINGS: BANK VAULT CLERK: Normal. LUNG BASES: The visualized lung bases are unremarkable. LIVER, GALLBLADDER, AND BILIARY TREE: Normal. PANCREAS: The homogeneously enhancing pancreas is normal in size and attenuation. However, there is early peripancreatic fat stranding particularly involving the body and head of the pancreas. Also, mild inflammatory reaction extends down the transverse mesocolon adjacent to the hepatic flexure of the colon. Mild fat stranding also extends into the mesenteric root. In fact, a small pancreatic effusion tracks down to the right lower quadrant. Series 602, image 54. Series 2, image 51. Anterior pararenal spaces are clear. There is no ascites. No pseudocyst formation is seen. SPLEEN: Unremarkable. A 1.3 cm accessory spleen lies adjacent to the tip of the spleen. ADRENAL GLANDS: Unremarkable. KIDNEYS AND URETERS: The kidneys are normal in size, shape, and attenuation. No hydronephrosis, hydroureter, or calculi seen. No perinephric stranding. A tiny cortical cyst is seen in the upper pole of the right kidney. BLADDER: Empty. GASTROINTESTINAL TRACT: The small and large bowel are unremarkable. The appendix is unremarkable. ABDOMINAL WALL: There is partial visualization of a fatty tumor extending to the left labial fold measuring 3.6 x 4.6 cm. This most likely represents a lipoma. LYMPH NODES: Normal. VASCULAR: Unremarkable. PELVIC VISCERA: The anteverted uterus is normal in size and shape. The ovaries are normal. There is an involuting 2 cm corpus luteum cyst within the right ovary. OSSEOUS STRUCTURES: Small enthesophytes arise from the ischial tuberosities bilaterally. IMPRESSION: 1. Acute pancreatitis. Currently no complications. 2. Probable lipoma extending to the left labial fold. SERVICE DATE: 07/11/17- EXAM TYPE: RAD - XRY-PORTABLE CHEST XRAY FINDINGS: No acute finding in this portable study. Some limitation from body habitus. No infiltrate. No effusion is seen. Mild elevation right hemidiaphragm. IMPRESSION: No acute infiltrate seen Disposition Summary Disposition Principal Diagnosis: Acute Pancreatitis Additional Diagnosis: None Discharge Disposition: home or self care Discharge Instructions General Discharge Information Code Status: Full Code Patient's Diet: Low Fat diet Patient's Activity: As tolerated Follow-Up Instructions/Appts: Please follow up with your PCP within one week of discharge. Medications at Discharge Discharge Medications: Start taking the following new medications: Nicotine (Nicotine Patch) 21 MG/24 HOUR PATCH.TD24 21 Milligram On the skin DAILY Qty = 30 No Refills Instructions: . Comments: Last Taken: 07/13/17 Time: 10AM Copies To: Nieves Grijalva MD
== END 2017-07-13 14:00 | DRG 440 ==
LOC: ERH 13:40 → ERHI 19:04 → 2NA 19:04 → ENRESERV 21:38 → ENTRNSPT 21:56 → EDTRNSPTSTS 22:07 → 2NA 22:16 → DELTRNSPT 22:28 → ENPENDDIS 07-13 13:22 → ENTRNSPT 07-13 13:44 → EDTRNSPT 07-13 13:50 → EDTRNSPTSTS 07-13 13:50 → 2NA 07-13 14:00 → CMPTRNSPT 07-13 14:02
PROVIDERS: Internal Medicine; Student in an Organized Health Care Education/Training Program
DX: K85.20 Alcohol induced acute pancreatitis without necrosis or infection (principal); N28.1 Cyst of kidney, acquired; K59.00 Constipation, unspecified; Z72.89 Other problems related to lifestyle; F17.200 Nicotine dependence, unspecified, uncomplicated
CPT/HCPCS: 2NASP; 36592; 71045; 74177; 80307; 81001; 82436; 87040; 87086; 93005; 93010; 96361; 96374; 96376; G0480; J1650; J2405; J7120